=== PATIENT | male | born 1955 | race Caucasian/White ===

== ENCOUNTER 2019-03-12 10:43 | Outpatient (CLI) | payer MEDICARE, OTHER ==
[~2019-03-12 10:43] MED LIST: ALPR-624 PO; ASPI81TA52 PO; ATOR40TA PO; FENT-90 TOP; NITR0.4T51 SL; OXYC-134 PO; SUMA6CAR SQ; VERA240T PO
[2019-03-12 12:11] LABS: ALANINE AMINOTRANSFERASE 26 U/L (12-78); ALBUMIN 3.8 G/DL (3.4-5.0); ALBUMIN/GLOBULIN RATIO 1.1 (1.1-1.5); ALKALINE PHOSPHATASE 107 IU/L (46-116); ANION GAP 12 (8-16); ASPARTATE AMINO TRANSFERASE 21 U/L (10-37); BILIRUBIN,TOTAL 0.4 MG/DL (0.1-1.0); BLOOD UREA NITROGEN 14 MG/DL (7-18); BUN/CREATININE RATIO 15.1 (5.4-32.0); CALCIUM 9.4 MG/DL (8.5-10.1); CHLORIDE 103 MMOL/L (99-107); CREATININE 0.93 MG/DL (0.60-1.10); GLUCOSE 95 MG/DL (70-104); POTASSIUM 4.3 MMOL/L (3.5-5.1); SODIUM 139 MMOL/L (135-145); TOTAL CARBON DIOXIDE 24.5 MMOL/L (24-32); TOTAL PROTEIN 7.4 G/DL (6.4-8.2); eGFR 82 ML/MIN
== END 2019-03-12 23:59 | disposition home or self-care (01) ==
LOC: LAB 10:43
PROVIDERS: ATTEND Family Medicine
DX: R10.10 Upper abdominal pain, unspecified (principal); I10 Essential (primary) hypertension; F17.200 Nicotine dependence, unspecified, uncomplicated; Z82.49 Family history of ischemic heart disease and other diseases of the circulatory system
CPT/HCPCS: 36415; 80053; 82977

== ENCOUNTER 2019-03-13 10:34 | Outpatient (CLI) | payer MEDICARE, OTHER | END 2019-03-13 23:59 | disposition home or self-care (01) | LOC: RAD 10:34 | PROVIDERS: ATTEND Family Medicine | DX: R10.84 Generalized abdominal pain (principal); I10 Essential (primary) hypertension; F17.200 Nicotine dependence, unspecified, uncomplicated | CPT/HCPCS: 76700 ==

== ENCOUNTER 2022-10-16 15:09 | Emergency (ER) | payer MEDICARE, OTHER ==
[~2022-10-16] VITALS: Ht 177.8 cm; Wt 91.2 kg
[2022-10-16 15:11] VITALS: BP 133/94
[2022-10-16] MEDS ORDERED: dexamethasone sod phosphate 10mg/ml inj IM STA (16:01)
[2022-10-16] MEDS ORDERED: ondansetron 4mg rapidly disintigrating tab PO STA (16:01)
[2022-10-16] MEDS ORDERED: morphine 4 MG/ML inj SYRINge IM STA (16:01)
[2022-10-16] MEDS ORDERED: METH4TAB3 PO (17:03)
[2022-10-16] MEDS ORDERED: BENZ-38 PO (17:03)
== END 2022-10-16 17:44 | disposition home or self-care (01) ==
LOC: ER 15:10
DX: M25.552 Pain in left hip (principal); R05.9 Cough, unspecified; Z88.0 Allergy status to penicillin; Z87.891 Personal history of nicotine dependence
CPT/HCPCS: 73502; 96372; 99284; J1100; J2270

== ENCOUNTER → 2024-02-26 | Emergency (ER) | payer MEDICARE, OTHER ==
[~2024-02-26] VITALS: Ht 177.8 cm; Wt 98.2 kg
[~2024-02-26] MED LIST changes: +METH4TAB3 PO
[2024-02-26 10:43] VITALS: BP 136/98; PULSE 78; RESP 18; TEMP 98.2; O2SAT 98
[2024-02-26] MEDS: LIDOcaine 1% W/epiNEPHrine 1:100,000 20ml vial IJ ONE (14:26)
[2024-02-26] MEDS: triamcinolone acetonide 40mg/ml inj ONE (14:26)
[2024-02-26] MEDS: triamcinolone acetonide 40mg/ml inj IS ONE (14:26)
== END | disposition home or self-care (01) ==
LOC: ER 10:35
DX: M77.9 Enthesopathy, unspecified (principal); I25.2 Old myocardial infarction; Z88.0 Allergy status to penicillin; Z79.82 Long term (current) use of aspirin; Z79.52 Long term (current) use of systemic steroids; Z79.899 Other long term (current) drug therapy
CPT/HCPCS: 20610; 73030; 99283; J3301

== ENCOUNTER 2025-03-05 12:09 | Day surgery (SDC) | payer MEDICARE, OTHER ==
[2025-03-01 12:01] LABS: MEAN PLATELET VOLUME 8.4 FL (7.4-10.4); RED CELL DISTRIBUTION WIDTH 17.1 % (11.5-14.5)
[2025-03-01 12:11] LABS: APTT 24 SECONDS (22-32); INR 1.0 INR
[2025-03-01 12:14] LABS: CHOL/HDL RATIO 3.4 (0.00-4.99); CREATININE 0.89 MG/DL (0.60-1.10); LDL CHOLESTEROL 69 MG/DL (50-100); TOTAL CARBON DIOXIDE 32.3 MMOL/L (24-32); eGFR 85 ML/MIN
[2025-03-05] VITALS (8 sets, daily range): BP systolic 115–131; BP diastolic 62–79; PULSE 72–94; RESP 10–18; TEMP 98.5; O2SAT 94–98
[~2025-03-05] VITALS: Ht 177.8 cm; Wt 88.7 kg
[~2025-03-05 12:09] MED LIST changes: -ALPR-624 PO; +APIX2.5T PO; -ASPI81TA52 PO; +ATOR10TA87 PO; -ATOR40TA PO; -FENT-90 TOP; -METH4TAB3 PO; +METO50TA7 PO; +METR-349 PO; -NITR0.4T51 SL; +SOTA80TA73 PO; -SUMA6CAR SQ; +TAMS-55 PO
--- NOTE | 2025-03-05 12:29 | ELECTROCARDIOGRAPH REPORT ---
[facility] Test Date: 2025-03-05 Test Time: 12:25:02 Pat Name: NIKOLAY PEREZ Department: [id number] Room: Gender: M [address]: KESHA : 1955 Requested By: VALERIA BAXTER Order Number: [id number] Reading MD: Dr. LINDY Harrington Measurements Intervals Lane Rate: 86 P: 0 NE: 0 QRS: -33 QRSD: 90 T: -69 QT: 427 QTc: 511 Interpretive Statements Afib/flut and V-paced complexes No further rhythm analysis attempted due to paced rhythm Left axis deviation Abnormal R-wave progression, early transition Nonspecific repol abnormality, diffuse leads Prolonged QT interval Electronically Signed On 03-05-2025 18:49:[address] LINDY Harrington Please click the below link to view image of tracing.
[2025-03-05] MEDS ORDERED: verapamil 2.5 mg/ml inj IV ONE (14:29)
[2025-03-05] MEDS ORDERED: heparin 1,000unit/ml 10ml vial 10 ML ONE (14:29)
[2025-03-05] MEDS ORDERED: LIDOcaine 1% (10mg/ml) 2ml vial ONE ×2 (14:30→15:14)
[2025-03-05] MEDS ORDERED: nitroGLYCERIN 500mcg/5mL D5W 5 ML IV ONE (14:31)
[2025-03-05] MEDS ORDERED: midazolam 1 mg/ML 2ml injection ONE ×2 (14:39→15:16)
[2025-03-05] MEDS ORDERED: fentaNYL/PF 50MCG/1 ML 2ML syringe ONE (14:39)
[2025-03-05] MEDS ORDERED: OXAZEpam 15mg capsule PO PRN (16:00)
[2025-03-05] MEDS ORDERED: ondansetron/PF 4mg/2ml inj IV PRN (16:00)
[2025-03-05] MEDS ORDERED: HYDROcodone/acetaminophen 5mg/325mg tablet PO PRN (16:00)
[2025-03-05] MEDS ORDERED: HYDROcodone/acetaminophen 10/325mg tab PO PRN (16:00)
[2025-03-05] MEDS: oxyCODONE/APAP 5-325mg tablet PO STA (16:55)
--- NOTE | 2025-03-25 20:39 | CARDIOLOGY REPORT ---
DATE OF SERVICE: 03/05/2025 DICTATING PHYSICIAN: Chandra Schrader MD CARDIAC CATHETERIZATION REPORT DATE OF PROCEDURE: 03/05/2025 PROCEDURES: * Left heart catheterization. * Selective coronary angiography. * Left ventriculography. * Conscious sedation monitoring time for 15 minutes. INDICATION: * Preop clearance. * Abnormal stress test. PHYSICIAN: Chandra Schrader MD PROCEDURE: After informed consent was obtained, the patient was brought to the cardiac labels molder in a fasting state where the patient was prepped and draped in the usual sterile manner. After adequate anesthesia was obtained using 1% lidocaine to the right wrist, a 5-Ind[place] sheath was inserted into the right radial artery using a modified Seldinger technique. Thereafter, using a cocktail of heparin, verapamil and nitroglycerin, the cocktail was given via the sheath in the radial artery to prevent coronary vasospasm and for anticoagulation. Next, using an Ultimate-2 catheter, the catheter was advanced under fluoroscopy guidance into the ascending aorta. The catheter was then manipulated to engage the left coronary system and coronary angiography of the left system was obtained. Next, the catheter was disengaged and manipulated to engage the right coronary artery and selective coronary angiography of the right coronary artery was obtained. Thereafter, the catheter was disengaged from the right coronary artery and manipulated to advance into the left ventricle where left ventriculography in the QUEEN position was obtained. The catheter was then removed. Hemostasis was obtained using the radial band. HEMODYNAMICS: For the patient's hemodynamics, please refer to the event log. Left ventricular end-diastolic pressure is 10 mmHg. FINDINGS: The left main coronary artery is a normal caliber vessel free of significant disease. The left anterior descending coronary artery is a medium caliber vessel with a 10-20% mid-vessel stenosis. The circumflex coronary artery is also a medium caliber vessel with a 20% stenosis of the ongoing circumflex coronary artery. The right coronary artery is a normal caliber dominant vessel with 10-20% mid-vessel stenosis. Left ventriculography revealed the presence of normal left ventricular function. IMPRESSION: * Mild luminal irregularities with no significant coronary artery disease by angiography. * Normal left ventricular function. * Left ventricular end-diastolic pressure is 10 mmHg. Chandra Schrader MD TID: [id number] RECEIPT: [id number] [facility]/CARMEN
== END 2025-03-05 17:26 | disposition home or self-care (01) ==
LOC: SSTAY O 12:09
PROVIDERS: ATTEND Student in an Organized Health Care Education/Training Program
DX: R94.39 Abnormal result of other cardiovascular function study (principal); I25.10 Atherosclerotic heart disease of native coronary artery without angina pectoris; I10 Essential (primary) hypertension; I49.5 Sick sinus syndrome; I48.91 Unspecified atrial fibrillation; E78.5 Hyperlipidemia, unspecified; Z88.0 Allergy status to penicillin; Z95.0 Presence of cardiac pacemaker; Z98.890 Other specified postprocedural states; Z85.828 Personal history of other malignant neoplasm of skin; Z96.643 Presence of artificial hip joint, bilateral; Z79.899 Other long term (current) drug therapy
CPT/HCPCS: 36415; 80048; 80061; 85025; 85610; 85730; 93005; 93458; 99152; A6258; A6402; C1894; J1644; J2003; J2250; J3010; J3490; J7030; Q0163; Q9967; Z7610; 99153; A6449